=== PATIENT | male | born 1995 | race Two or more races ===

== ENCOUNTER 2017-06-07 23:13 | Emergency (ER) | payer MEDICAID, OTHER ==
[~2017-06-07] VITALS: Ht 180.3 cm; Wt 117.9 kg
[2017-06-08 02:09] VITALS: BP 131/91
== END 2017-06-08 02:29 | disposition home or self-care (01) ==
LOC: ER 23:14
DX: S00.33XA Contusion of nose, initial encounter (principal); W22.8XXA Striking against or struck by other objects, initial encounter; Y93.89 Activity, other specified; Y92.69 Other specified industrial and construction area as the place of occurrence of the external cause; Y99.8 Other external cause status
CPT/HCPCS: 70486